=== PATIENT | male | born 1995 | race Caucasian/White ===

== ENCOUNTER 2022-01-31 14:17 | Emergency (ER) | payer OTHER ==
[~2022-01-31] VITALS: Ht 185.4 cm; Wt 63.5 kg
[2022-01-31] MEDS ORDERED: L.E.T. GEL 3ML SYG TP ONE ×2 (14:42→15:00)
[2022-01-31] MEDS ORDERED: TETANUS/DIPHTHERIA TOXOID [ADULT] 0.5 ML VIAL IM ONE (15:00)
[2022-01-31] MEDS ORDERED: BACI30OI6 TP (15:48)
[2022-01-31] MEDS ORDERED: AMOX1TAB16 PO (15:48)
[2022-01-31] MEDS ORDERED: BACITRACIN 28.4 GM OINT TP ONE (16:00)
[2022-01-31 16:34] VITALS: BP 128/74
== END 2022-01-31 16:38 | disposition home or self-care (01) ==
LOC: EDH 14:17
DX: S01.21XA Laceration without foreign body of nose, initial encounter (principal); J45.909 Unspecified asthma, uncomplicated; X58.XXXA Exposure to other specified factors, initial encounter; Y93.89 Activity, other specified; Y92.89 Other specified places as the place of occurrence of the external cause; Y99.8 Other external cause status
CPT/HCPCS: 12013; 70160; 90471; 90714